=== PATIENT | male | born 1970 | race Caucasian/White ===

== ENCOUNTER 2017-03-20 13:56 | Inpatient (IN) | payer SELFPAY ==
[~2017-03-20] VITALS: Ht 182.9 cm; Wt 127.0 kg
[2017-03-20 14:37] LABS: HEMOGLOBIN 15.8 gm/dl (14.0-17.5); RED BLOOD COUNT 5.46 M/UL (4.20-5.50); WHITE BLOOD COUNT 8.3 K/UL (4.5-11.0)
[2017-03-20 15:00] LABS: BUN/CREATININE RATIO 19 (0-10)
[2017-03-22] MEDS ORDERED: ELIQUIS5 MG PO (18:23)
[2017-03-22] MEDS ORDERED: SOTALOL80 MG PO (18:23)
[2017-03-22] MEDS ORDERED: TYLENOL 325MG325 MG PO (18:24)
== END 2017-03-22 19:00 | disposition home or self-care (01) | DRG 310 ==
LOC: ER1 13:56 → ZEROF 17:41 → CCU 18:12
PROVIDERS: Emergency Medicine; ADMIT Internal Medicine Infectious Disease
PROC: 5A2204Z Restoration of Cardiac Rhythm, Single (ICD-10-PCS; principal; 2017-03-22)
PROC: B24BZZ4 Ultrasonography of Heart with Aorta, Transesophageal (ICD-10-PCS; 2017-03-22)
DX: I48.0 Paroxysmal atrial fibrillation (principal); E78.5 Hyperlipidemia, unspecified; E66.9 Obesity, unspecified; Z68.38 Body mass index [BMI] 38.0-38.9, adult; G47.33 Obstructive sleep apnea (adult) (pediatric); Z82.49 Family history of ischemic heart disease and other diseases of the circulatory system; M54.5 Low back pain
CPT/HCPCS: ECHO; 71010; 80053; 80061; 82550; 82553; 83735; 83874; 84443; 84484; 85025; 85610; 85730; 93005; 93306; 93312; 93320; J1200; J1650; J2250; J3010; J7030